=== PATIENT | male | born 1935 | race Caucasian/White ===

== ENCOUNTER 2022-10-07 20:31 | Inpatient (IN) | payer MEDICARE ==
[~2022-10-07] VITALS: Ht 170.2 cm; Wt 56.2 kg
--- NOTE | 2022-10-07 20:40 | NUR ---
[id number] FROM HOME C/O FLU LIKE SYM X 1 WEEK, AT HOME COVID TEST + TODAY. PT A/OX3. TOLERATING O2 3LPM VIA N/C AT 95%. CONNECTED PT TO POX AND MONITOR. SAFETY MEASURES IN PLACE.
[2022-10-07] MEDS ORDERED: DEXAMETHASONE SOD PHOSPHATE 10 MG/ML VIAL ONE (21:56)
[2022-10-07] MEDS ORDERED: DEXAMETHASONE SOD PHOSPHATE 10 MG/ML VIAL IV ONE (22:00)
--- NOTE | 2022-10-07 22:15 | NUR ---
IV ESTABLISHED LFA #18G S/L; BLOOD, COVID ANTIGEN, AND INFLUENZA SWAB COLLECTED AND SENT TO LAB
--- NOTE | 2022-10-07 22:16 | NUR ---
CURRICULUM AND INSTRUCTION DIRECTOR AT PT'S BEDSIDE
[2022-10-07 22:23] LABS: BASOPHILS % (AUTO) 0.3 % (0.0-2.0); EOSINOPHILS % (AUTO) 0.1 % (0.0-6.0); HEMATOCRIT 27 % (39-51); HEMOGLOBIN 8.9 g/dL (13.5-17.5); LYMPHOCYTES # (AUTO) 0.3 K/uL (0.8-4.8); LYMPHOCYTES % (AUTO) 4.9 % (20.0-44.0); MEAN CORPUSCULAR HGB CONC 33 g/dl (31.0-36.0); MEAN CORPUSCULAR VOLUME 89 fL (80-96); MONOCYTES # (AUTO) 0.5 K/uL (0.1-1.30); MONOCYTES % (AUTO) 7.9 % (2.0-12.0); NEUTROPHILS # (AUTO) 5.1 K/uL (1.8-8.9); NEUTROPHILS % (AUTO) 86.8 % (43.0-81.0); PLATELET COUNT (AUTO) 298 K/uL (150-450); RED BLOOD CELL COUNT(AUTO) 3.03 MIL/uL (4.5-6.0); WHITE BLOOD COUNT (AUTO) 5.8 K/uL (4.3-11.0)
[2022-10-07 22:38] LABS: CALCIUM, SERUM 7.9 mg/dL (8.5-10.1); CARBON DIOXIDE 28 mmol/L (21-32); CHLORIDE 97 mmol/L (98-107); CREATININE 2.1 mg/dL (0.6-1.3); GLUCOSE 97 mg/dL (74-106); POTASSIUM 5.1 mmol/L (3.5-5.1); SODIUM SERUM 130 mmol/L (136-145); UREA NITROGEN, BLOOD 62 mg/dL (7-18)
[2022-10-07 22:51] LABS: ALANINE AMINOTRANSFERASE 14 U/L (12-78); ALKALINE PHOSPHATASE 85 U/L (46-116); ASPARTATE AMINOTRANSFERASE 25 U/L (15-37); BILIRUBIN,DIRECT 0.1 mg/dL (0.0-0.2); BILIRUBIN,TOTAL 0.3 mg/dL (0.2-1.0); TOTAL PROTEIN, SERUM 6.9 g/dL (6.4-8.2)
[2022-10-07] MEDS ORDERED: AZITHROMYCIN 500 MG VIAL ONE (23:26)
[2022-10-07] MEDS ORDERED: CEFTRIAXONE 1GM BAG (ER ONLY) 50 ML IV ONE (23:26)
[2022-10-07] MEDS ORDERED: AZITHROMYCIN 500 MG in IV D5W 250 ML IV ONE (23:30)
[2022-10-07] MEDS ORDERED: CEFTRIAXONE 1GM BAG (ER ONLY) 1 GM/50 ML PIGGYBACK IV ONE (23:30)
--- NOTE | 2022-10-07 23:44 | NUR ---
COVID PCR SWAB COLLECTED AND SENT TO LAB
[2022-10-08] MEDS ORDERED: ZOLPIDEM TARTRATE 5 MG TABLET PO PRN (01:00)
[2022-10-08] MEDS ORDERED: ONDANSETRON HCL/PF 4 MG/2 ML VIAL IVP PRN (01:00)
[2022-10-08] MEDS ORDERED: MAG HYDROX/AL HYDROX/SIMETH 30 ML UDC PO PRN (01:00)
[2022-10-08] MEDS ORDERED: AZITHROMYCIN 500 MG in IV D5W 250 ML IV SCH (01:00)
[2022-10-08] MEDS ORDERED: MAGNESIUM HYDROXIDE 30 ML UDC PO PRN (01:00)
[2022-10-08] MEDS ORDERED: Z GUARD REMEDY 4 OZ OINT TP PRN (01:00)
[2022-10-08] MEDS ORDERED: ACETAMINOPHEN 325 MG TABLET PO PRN (01:00)
--- NOTE | 2022-10-08 01:53 | NUR ---
REPORT GIVEN TO KHRIS MARINELLI RN FOR GRICELDA.
--- NOTE | 2022-10-08 02:17 | NUR ---
Maddie renee in EDM - 10/08/22 at 0218 by MICAELA PT TRANFERRED TO [facility] PROTOCOL. VSS. ALL BELONGINGS WITH PT.
--- NOTE | 2022-10-08 02:18 | NUR ---
PT TRANFERRED TO [facility]IA [facility] PROTOCOL. VSS. ALL BELONGINGS WITH PT.
--- NOTE | 2022-10-08 02:36 | NUR ---
RN OPENING NOTE PT RECEIVED FROM ER FROM NURSE HOWARD. PT A&OX1 AND ABLE TO FOLLOW COMMANDS, RESPIRATIONS EVEN AND UNLABORED ON NC AT 3 LPM. DENIES SOB, CHEST DISCOMFORT AND PAIN AT THIS TIME. L FOREARM 18 G FLUSHED AND PATENT. SKIN IS WARM AND DRY. COVID PCR PENDING. SAFETY PRECAUTIONS IN PLACE. BED LOCKED AND AT LOWEST POSITION WITH 2 RAILS UP. CALL LIGHT WITHIN REACH.
[2022-10-08] MEDS: HEPARIN SODIUM, PORCINE 5000 UNITS/1 ML VIAL SQ SCH ×3 (03:15→21:24)
[2022-10-08 04:00] VITALS: BP 114/44
[2022-10-08] MEDS: IV NS 0.9% 1,000 ML IV PRN ×2 (06:41→19:54)
--- NOTE | 2022-10-08 07:16 | NUR ---
RN CLOSING NOTE PT FOUND AWAKE SITTING UP IN BED. SKIN IS WARM, DRY, AND INTACT. VS STABLE. PT ON 2 LPM NC AND TOLERATING WELL. DENIES SOB AND STATES THAT HE FEELS FINE. L FOREARM 18G RUNNING 0.9% NS AT 75 ML/HR. SAFETY PRECAUTIONS IN PLACE. BED LOCKED AND AT LOWEST LEVEL. 2 SIDE RAILS UP, CALL LIGHT WITHIN REACH, AND BED ALARM ON.
--- NOTE | 2022-10-08 07:24 | NUR ---
rn opening note received pt in bed.pt is alert and oriented x1. no complaints of pain or discomfort noted at this time.pt is on tele monitot sinus ally at 59.pt has left iv 18 gauge. pt on isolation due to pcr pending. all safety measures in place. call light within reach. bed locked at lowest position.side rails up x2.
[2022-10-08 08:00] VITALS: BP 99/50
[2022-10-08] MEDS: DEXAMETHASONE SOD PHOSPHATE 10 MG/ML VIAL IV SCH (08:49)
[2022-10-08] MEDS ORDERED: DEXAMETHASONE SOD PHOSPHATE 6 MG in IV D5W 50 ML IV SCH (09:00)
[2022-10-08] MEDS ORDERED: ZINC50TA65 PO (10:05)
[2022-10-08] MEDS ORDERED: ASPI-1169 PO (10:05)
[2022-10-08] MEDS ORDERED: HYDR-4303 PO (10:05)
[2022-10-08 12:00] VITALS: BP 106/33
[2022-10-08] MEDS ORDERED: FUROSEMIDE 20 MG/2 ML VIAL IV ONE (15:00)
[2022-10-08 16:00] VITALS: BP 113/50
--- NOTE | 2022-10-08 19:09 | NUR ---
RN CLOSING NOTE PT ALERT AND ORIENTED X2-3. PT ABLE TO MAKE NEEDS KNOWN. PT IS ON TELE MONITOR SINUS RHYTM 66. PT ON 2 LPM NASAL CANNULA TOLERATING WELL AT ABOVE 94%. NO SIGNS OF PAIN OR DISCOMFORT NOTED AT THIS TIME. PT HAS L FOREARM 18 GUAGE. IV PATENT, INTACT AND FLUSHING WELL. ALL SAFETY MEASURES IN PLACE. CALL LIGHT WITHIN REACH. BED LOCKED IN LOWEST POSITION. BED ALARM ON. ENDORSED TO CURER FOAM RUBBER RN FOR CONTUITY OF CARE
--- NOTE | 2022-10-08 19:30 | NUR ---
RN OPENING NOTE PT A&OX1. SPEECH IS CLEAR AND RESPIRATIONS EVEN AND UNLABORED ON NC AT 2 LPM. SKIN IS WARM AND DRY. NSR ON MUSICAL THERAPIST. NO ACUTE SIGNS OF DISTRESS. DENIES PAIN AND OTHER NEEDS AT THIS TIME. NS RUNNING AT 75 ML/HR VIA L FOREARM 18G IV. SAFETY PRECAUTIONS IN PLACE. BED LOCKED AND AT LOWEST LEVEL. X2 RAILS UP AND CALL LIGHT WITHIN REACH. BED ALARM ON.
[2022-10-08 20:00] VITALS: BP_SYST 107; BP_SYST 122; BP_DIAS 39; BP_DIAS 63
[2022-10-08] MEDS: AZITHROMYCIN 500 MG in IV D5W 250 ML IV SCH (21:20)
[2022-10-08] MEDS: CEFTRIAXONE 1 G in IV D5W 50 ML IV SCH (22:22)
[2022-10-09] VITALS: BP 99/47
[2022-10-09 04:00] VITALS: BP 116/52
--- NOTE | 2022-10-09 06:35 | NUR ---
RN CLOSING NOTE PT SLEEPING BUT EASILY AROUSABLE. SKIN IS WARM AND DRY. RESPIRATIONS EVEN AND UNABLORED ON NC 2 LPM. NSR ON MONITOR AND VS STABLE. L FOREARM IV 18G RUNNING NS AT 75 ML/HR. NO SIGNIFICANT CHANGES DURING SHIFT. NO SIGNS OF DISTRESS. BED LOCKED AND AT LOWEST LEVEL WITH 2 RAILS UP. CALL LIGHT WITHIN REACH.
[2022-10-09 06:53] LABS: CHOLESTEROL 146 mg/dL (<200); HDL CHOLESTEROL 32 mg/dL (40-60); LDL 95 mg/dL (0-99); TRIGLYCERIDES 142 mg/dL (30-150)
[2022-10-09 06:59] LABS: BASOPHILS % (AUTO) 0.2 % (0.0-2.0); HEMATOCRIT 23 % (39-51); HEMOGLOBIN 7.7 g/dL (13.5-17.5); LYMPHOCYTES # (AUTO) 0.5 K/uL (0.8-4.8); LYMPHOCYTES % (AUTO) 7.7 % (20.0-44.0); MEAN CORPUSCULAR HGB CONC 33 g/dl (31.0-36.0); MEAN CORPUSCULAR VOLUME 89 fL (80-96); MONOCYTES # (AUTO) 0.3 K/uL (0.1-1.30); MONOCYTES % (AUTO) 3.8 % (2.0-12.0); NEUTROPHILS # (AUTO) 5.8 K/uL (1.8-8.9); NEUTROPHILS % (AUTO) 88.3 % (43.0-81.0); PLATELET COUNT (AUTO) 282 K/uL (150-450); RED BLOOD CELL COUNT(AUTO) 2.62 MIL/uL (4.5-6.0); WHITE BLOOD COUNT (AUTO) 6.5 K/uL (4.3-11.0)
[2022-10-09 07:09] LABS: CALCIUM, SERUM 8.4 mg/dL (8.5-10.1); CARBON DIOXIDE 28 mmol/L (21-32); CHLORIDE 102 mmol/L (98-107); CREATININE 1.7 mg/dL (0.6-1.3); GLUCOSE 116 mg/dL (74-106); MAGNESIUM 2.7 mg/dL (1.8-2.4); PHOSPHORUS 5.1 mg/dL (2.5-4.9); POTASSIUM 5.2 mmol/L (3.5-5.1); SODIUM SERUM 137 mmol/L (136-145); UREA NITROGEN, BLOOD 68 mg/dL (7-18)
--- NOTE | 2022-10-09 07:25 | NUR ---
rn opening note received pt in bed.pt is alert and oriented x1. no complaints of pain or discomfort noted at this time.pt is on tele monitor sinus rhythm at 64.pt has left iv 18 gauge. iv intact, patent and flushing well. pt on isolation precautions due to pcr pending. all safety measures in place. call light within reach. bed locked at lowest position.side rails up x2. bed alarm on
[2022-10-09 08:00] VITALS: BP 118/65
[2022-10-09] MEDS: DEXAMETHASONE SOD PHOSPHATE 10 MG/ML VIAL IV SCH (08:55)
[2022-10-09] MEDS: HEPARIN SODIUM, PORCINE 5000 UNITS/1 ML VIAL SQ SCH ×2 (08:56→21:40)
[2022-10-09 12:00] VITALS: BP 124/63
[2022-10-09] MEDS: IV NS 0.9% 1,000 ML IV PRN (12:36)
[2022-10-09 16:00] VITALS: BP 136/63
--- NOTE | 2022-10-09 19:32 | NUR ---
RN CLOSING NOTE PT ALERT AND ORIENTED X2-3. PT ABLE TO MAKE NEEDS KNOWN. PT IS ON TELE MONITOR SINUS RHYTM 68.PT ON 2 LPM NASAL CANNULA TOLERATING WELL AT ABOVE 98%. NO SIGNS OF PAIN OR DISCOMFORT NOTED AT THIS TIME. PT HAS L FOREARM 18 GUAGE. IV PATENT, INTACT AND FLUSHING WELL. ALL SAFETY MEASURES IN PLACE. CALL LIGHT WITHIN REACH. BED LOCKED IN LOWEST POSITION. BED ALARM ON. ENDORSED TO DIRECT MAIL COORDINATOR RN FOR CONTUITY OF CARE
--- NOTE | 2022-10-09 19:45 | NUR ---
RN OPENING NOTE PATIENT ASLEEP IN BED. A/OX2. NO S/S OF DISTRESS, BREATHING WITHOUT DIFFICULTY ON 2L NC. LFA #18 SL INTACT AND PATENT. TELE READS SR 66. SAFETY MEASURES IN PLACE: BED LOCKED IN PLACE AND AT LOWEST POSITION, RAILS UP X2, CALL ENGLISH WITHIN REACH, WILL CONTINUE TO MONITOR PATIENT.
[2022-10-09 20:00] VITALS: BP 133/46
[2022-10-09] MEDS: AZITHROMYCIN 500 MG in IV D5W 250 ML IV SCH (21:29)
[2022-10-09] MEDS: CEFTRIAXONE 1 G in IV D5W 50 ML IV SCH (22:32)
[2022-10-10] VITALS: BP 122/38
[2022-10-10 04:53] VITALS: BP 115/64
[2022-10-10] MEDS: IV NS 0.9% 1,000 ML IV PRN ×2 (05:58→17:05)
[2022-10-10 05:59] LABS: CALCIUM, SERUM 7.7 mg/dL (8.5-10.1); CREATININE 1.3 mg/dL (0.6-1.3); MAGNESIUM 2.5 mg/dL (1.8-2.4); PHOSPHORUS 3.3 mg/dL (2.5-4.9); POTASSIUM 4.7 mmol/L (3.5-5.1)
[2022-10-10 06:06] LABS: HEMATOCRIT 22 % (39-51); HEMOGLOBIN 7.2 g/dL (13.5-17.5); LYMPHOCYTES # (AUTO) 0.4 K/uL (0.8-4.8); LYMPHOCYTES % (AUTO) 6.9 % (20.0-44.0); MEAN CORPUSCULAR HGB CONC 33 g/dl (31.0-36.0); MEAN CORPUSCULAR VOLUME 89 fL (80-96); MONOCYTES # (AUTO) 0.3 K/uL (0.1-1.30); MONOCYTES % (AUTO) 5.9 % (2.0-12.0); NEUTROPHILS # (AUTO) 4.4 K/uL (1.8-8.9); NEUTROPHILS % (AUTO) 87.2 % (43.0-81.0); PLATELET COUNT (AUTO) 295 K/uL (150-450); RED BLOOD CELL COUNT(AUTO) 2.46 MIL/uL (4.5-6.0); WHITE BLOOD COUNT (AUTO) 5.1 K/uL (4.3-11.0)
--- NOTE | 2022-10-10 06:48 | NUR ---
RN CLOSING NOTE PATIENT AWAKE IN BED. A/OX1 (NAME). NO S/S/ OF DISTRESS, BREATHING WITHOUT DIFFICULTY ON 2L NC. LFA #18 INTACT AND PATENT W/ NS 75ML/HR. TELE READS SR 68. SAFETY MEASURES IN PLACE: BED LOCKED AND AT LOWEST POSITION, RAILS UP X2, CALL ENGLISH WITHIN REACH. WILL ENDORSE TO NEXT SHIFT FOR GRICELDA.
--- NOTE | 2022-10-10 07:56 | NUR ---
RN OPENING NOTE RECEIVED PATIENT IN BED, AO X 2. ABLE TO RESPONDS ALL STIMULI. RESPIRATORY EVEN AND UNLABORED WITH OXYGEN AT 2Ls VIA NC. IN NO ACUTE DISTRESS OBSERVED. SKIN IS WARM TO TOUCH, KEEP CLEAN/DRY. KEPT ELEVATED HOB FOR ASPIRATION PRECAUTION/ENSURE AIRWAY, AND LOWEST BED POSITIONED. BED ALARM IS ON AT ALL THE TIME FOR SAFETY. CALL LIGHT WITHIN REACH, WILL CONTINUE TO MONITOR
[2022-10-10 08:00] VITALS: BP 105/69
[2022-10-10] MEDS: DEXAMETHASONE SOD PHOSPHATE 10 MG/ML VIAL IV SCH (08:42)
[2022-10-10] MEDS: HEPARIN SODIUM, PORCINE 5000 UNITS/1 ML VIAL SQ SCH ×3 (08:43→21:27)
[2022-10-10 12:00] VITALS: BP 132/61
[2022-10-10 16:00] VITALS: BP 132/61
--- NOTE | 2022-10-10 17:39 | NUR ---
RN CLOSING NOTE PATIENT RESTING IN BED. IN NO ACUTE DISTRESS OBSERVED. RESPIRATORY EVEN AND UNLABORED ON OXYGEN AT 2Ls VIA NC. NO SOB OR DIFFICULTY BREATHING OBSERVED. SKIN IS WARM TO TOUCH KEEP CLEAN/DRY. PROVIDED SKI CARE. KEPT ELEVATED HOB FOR ENSURE AIRWAY/ASPIRATION PRECAUTION, AND LOWEST BED POSITION. BED ALARM IS ON AT ALL THE TIME FOR SAFETY. CALL LIGHT WITHIN REACH, WILL ENDORSE MANAGER LEGAL.
--- NOTE | 2022-10-10 18:44 | NUR ---
PATIENT NOTICED DIFFICULT TO SWALLOWING FOOD WITH COUGHING ACCORDING MD FABIO INFORMED AND PLACED ORDER SWALLOW EVALUATION.
--- NOTE | 2022-10-10 19:30 | NUR ---
RN OPENING NOTE PT A&OX2. SKIN IS WARM AND DRY. SPEECH CLEAR. RESPIRATIONS EVEN AND UNLABORED ON NC AT 2 LPM WITH O2 SAT OF 96%. L FOREARM 18 G INTACT AND RUNNING NS AT 75 ML/HR. NO ACUTE SIGNS OF DISTRESS. DENIES PAIN OR OTHER NEEDS AT THIS TIME. HOB ELEVATED. BED LOCKED AND AT LOWEST LEVEL WITH 2 RAILS UP. CALL IGHT WITHIN REACH.
[2022-10-10 20:00] VITALS: BP 118/82
[2022-10-10] MEDS: AZITHROMYCIN 250 MG TABLET PO SCH (21:22)
--- NOTE | 2022-10-10 21:47 | NUR ---
RN NOTE HEPARIN HELD DUE TO LOW H&H. HGB 7.2. HCT 22.
[2022-10-10] MEDS: CEFTRIAXONE 1 G in IV D5W 50 ML IV SCH (22:11)
[2022-10-11] VITALS (11 sets, daily range): BP systolic 117–152; BP diastolic 38–88
[2022-10-11 06:29] LABS: HEMATOCRIT 21 % (39-51); LYMPHOCYTES # (AUTO) 0.3 K/uL (0.8-4.8); LYMPHOCYTES % (AUTO) 7.9 % (20.0-44.0); MEAN CORPUSCULAR HGB CONC 33 g/dl (31.0-36.0); MEAN CORPUSCULAR VOLUME 90 fL (80-96); MONOCYTES # (AUTO) 0.4 K/uL (0.1-1.30); MONOCYTES % (AUTO) 9.5 % (2.0-12.0); NEUTROPHILS # (AUTO) 3.2 K/uL (1.8-8.9); NEUTROPHILS % (AUTO) 82.6 % (43.0-81.0); PLATELET COUNT (AUTO) 349 K/uL (150-450); RED BLOOD CELL COUNT(AUTO) 2.39 MIL/uL (4.5-6.0); WHITE BLOOD COUNT (AUTO) 3.9 K/uL (4.3-11.0)
--- NOTE | 2022-10-11 06:40 | NUR ---
RN CLOSING NOTE PT A&OX2. SKIN IS WARM AND DRY. SPEECH CLEAR. RESPIRATIONS EVEN AND UNLABORED ON NC AT 2 LPM. L FOREARM 18 G INTACT AND RUNNING NS AT 75 ML/HR. NO ACUTE SIGNS OF DISTRESS. LAB RECENTL CALLED TO INFORM THAT PT'S COVID PCR IS POSITIVE. PRINTING MANAGER PHYSICIAL NOTIFIED OF LABE STATUS. DENIES PAIN OR OTHER NEEDS AT THIS TIME. HOB ELEVATED. BED LOCKED AND AT LOWEST LEVEL WITH 2 RAILS UP. CALL LIGHT WITHIN REACH. PER CAREGIVER, PT EATS PUREED FOODS AT HOME. WILL ENDORSE THIS TO AM NURSE.
[2022-10-11 07:05] LABS: CALCIUM, SERUM 7.9 mg/dL (8.5-10.1); CREATININE 1.1 mg/dL (0.6-1.3); MAGNESIUM 2.5 mg/dL (1.8-2.4); PHOSPHORUS 2.4 mg/dL (2.5-4.9); POTASSIUM 3.9 mmol/L (3.5-5.1)
--- NOTE | 2022-10-11 07:28 | NUR ---
RN NOTE CRITICAL LAB REPORTED BY LAB HGB OF 7.0. NOTIFIED CHARGE NURSE. AWAITING MD ORDERS
[2022-10-11] MEDS: IV NS 0.9% 1,000 ML IV PRN (08:07)
--- NOTE | 2022-10-11 09:40 | NUR ---
RN NOTE MD ORDER FOR 1 UNIT RBC.
[2022-10-11] MEDS: DEXAMETHASONE SOD PHOSPHATE 10 MG/ML VIAL IV SCH (10:02)
[2022-10-11] MEDS ORDERED: NEUTRA PHOS 1 POWD.PACKET PO ONE (13:00)
--- NOTE | 2022-10-11 18:53 | NUR ---
RN CLOSING NOTE COMPLETED 1 UNIT OF RBC, NO REACTION NOTED. PT A&OX2. SKIN IS WARM AND DRY. RESPIRATIONS EVEN AND UNLABORED ON NC AT 2 LPM. L FOREARM 18 G INTACT AND RUNNING NS AT 75 ML/HR. NO ACUTE SIGNS OF DISTRESS. DENIES PAIN OR OTHER NEEDS AT THIS TIME. PATIENT ON PUREE DIET, HOB ELEVATED. BED LOCKED AND AT LOWEST LEVEL WITH 2 RAILS UP. CALL LIGHT WITHIN REACH. WILL ENDORSE CONTINUITY OF CARE TO THERAPEUTIC RECREATION ASSISTANT NURSE
[2022-10-11] MEDS: HEPARIN SODIUM, PORCINE 5000 UNITS/1 ML VIAL SQ SCH (21:00)
[2022-10-11] MEDS: CEFTRIAXONE 1 G in IV D5W 50 ML IV SCH (21:59)
[2022-10-11] MEDS: AZITHROMYCIN 250 MG TABLET PO SCH (21:59)
--- NOTE | 2022-10-11 23:00 | NUR ---
CLYDE HUDSON INFORMED PATIENT HEPARIN HELD, HGB 7.0 IN AM AND WITH NO REPEAT LAB. PATIENT HAD 1 UNIT RBC IN AM. ORDERS TO HOLD AND FOR REPEAT CBC IN AM.
[2022-10-12] VITALS: BP 136/85
[2022-10-12 04:00] VITALS: BP 131/75
[2022-10-12] MEDS: IV NS 0.9% 1,000 ML IV PRN (06:17)
--- NOTE | 2022-10-12 06:50 | NUR ---
RN CLOSING NOTE: ALERT TIMES TO NAME, CONFUSED AND DISORIENTED, REORIENTED NEEDED. ON 02 3 LITERS PER MINUTE NC SATING AT 94 %. SINUS RHYTHM 86 WITH PVC'S ON TELE MONITOR. IVF OF NS AT 75 ML/HR VIA LEFT FOREARM G 18. IV SITE PATENT WITH NO S/S OF COMPLICATIONS. ASPIRATION PRECAUTIONS MAINTAINED. KEPT CLEAN AND DRY. TURNED AND REPOSITIONED. HOB ELEVATED SEMI-CHAMPAGNE'S POSITION, BILATERAL HALF SIDE RAILS UP X2. BED IN LOW POSITION, LOCKED, BED EXIT ALARM ON, CALL LIGHT IN REACH.
[2022-10-12 07:10] LABS: BASOPHILS % (AUTO) 0.1 % (0.0-2.0); HEMATOCRIT 28 % (39-51); HEMOGLOBIN 9.3 g/dL (13.5-17.5); LYMPHOCYTES # (AUTO) 0.6 K/uL (0.8-4.8); LYMPHOCYTES % (AUTO) 12.7 % (20.0-44.0); MEAN CORPUSCULAR HGB CONC 33 g/dl (31.0-36.0); MEAN CORPUSCULAR VOLUME 88 fL (80-96); MONOCYTES # (AUTO) 0.6 K/uL (0.1-1.30); NEUTROPHILS # (AUTO) 3.5 K/uL (1.8-8.9); NEUTROPHILS % (AUTO) 75.2 % (43.0-81.0); PLATELET COUNT (AUTO) 407 K/uL (150-450); RED BLOOD CELL COUNT(AUTO) 3.13 MIL/uL (4.5-6.0); WHITE BLOOD COUNT (AUTO) 4.6 K/uL (4.3-11.0)
[2022-10-12 07:30] LABS: CALCIUM, SERUM 8.2 mg/dL (8.5-10.1); CREATININE 1.2 mg/dL (0.6-1.3); MAGNESIUM 2.1 mg/dL (1.8-2.4); PHOSPHORUS 2.5 mg/dL (2.5-4.9); POTASSIUM 3.9 mmol/L (3.5-5.1)
--- NOTE | 2022-10-12 07:35 | NUR ---
TRIMMING OPERATOR OPENING NOTES RECEIVED PT ASLEEP IN BED. NO SIGNS OF PAIN OR DISCOMFORT AT THIS TIME. RESPIRATIONS ARE EQUAL AND UNLABORED WITH NO SOB. PT IS ON NC 2L AND TOLERATING IT WELL WITH O2 SATURATION AT 97%. PT IS PO AND RECEIVES MEDS ORALLY. IV ACCESS ON LFA 18G PATENT AND INTACT. PT IS PO AND RECIEVS MEDS ORALLY. HOB ELEVATED TO PTS COMFORT. SIDERAILS UP AT ALL TIMES. CALL LIGHT WITHIN REACH. WILL CONTINUE CURRENT PLAN OF CARE.
[2022-10-12 08:00] VITALS: BP_SYST 145; BP_SYST 156; BP_DIAS 78; BP_DIAS 96
[2022-10-12] MEDS: DEXAMETHASONE SOD PHOSPHATE 10 MG/ML VIAL IV SCH (08:16)
[2022-10-12] MEDS: HEPARIN SODIUM, PORCINE 5000 UNITS/1 ML VIAL SQ SCH ×2 (08:23→20:15)
--- NOTE | 2022-10-12 09:34 | NUR ---
SALES OFFICE ADMINISTRATOR NOTE ST AT BEDSIDE SWALLOW EVAL DONE STILL NEED PURE DIET AND ON ASPIRATION PRECAUTION AND HONEY THICKEN LIQUID, WILL F\U
--- NOTE | 2022-10-12 11:49 | NUR ---
VET TECH NOTE UNABLE TO DO PT, PATIENT VERY UNCOOPERATIVE
[2022-10-12 12:00] VITALS: BP 114/46
--- NOTE | 2022-10-12 12:33 | NUR ---
DIET KITCHEN COOK NOTES MADE DR GALINDO AWARE OF PT BP 145/78. STATED THAT HE WILL PUT NEW PRN ORDERS FOR HYPERTENSION.
--- NOTE | 2022-10-12 15:00 | NUR ---
MAINTENANCE TECHNICIAN NOTE ALL NEEDS ATTENDED TURB REPOSITION , ON IVF ORDERED, NOT IN DISTRESS
[2022-10-12 16:00] VITALS: BP 138/79
--- NOTE | 2022-10-12 17:54 | NUR ---
ESTIMATING MANAGER NOTES PROCEDURAL NURSE TRIED TO ASSIST PT TO EAT DINNER BUT PT STRONGLY REFUSED.
--- NOTE | 2022-10-12 18:16 | NUR ---
FIRE INFORMATION OFFICER CLOSING NOTES PT IS AWAKE IN BED AOX2. NO COMPLAINTS OF PAIN OR DISCOMFORT AT THIS TIME. ON NASAL CAANNULA 2 L AND TOLERATING IT WELL WITH 02 SATURATION AT 95%. IV ACCESS ON LFA 18 GAUGE PATENT AND INTACT. HOB ELEVATED TO PTS COMFORT. SIDERAILS UP AT ALL TIMES. CALL LIGHT WITHIN REACH. WILL ENDORSE TO ONCOMING NURSE
--- NOTE | 2022-10-12 19:30 | NUR ---
RN opening notes Received Pt from morning nurse. Pt is alert and orientedX1-2 with episode of confusion. On room air. On 2 L NC. No SOB. No S/S of distress noted. Tele monitor showed SR. Iv site LFA# 18 is clean, intact and running NS@ 75 ml/hr. Safety precautions is maintained. Bed at low position, brakes locked, side rails upX3, hob elevated, bed alarm is on and call light is within reach. Will continue to monitor.
[2022-10-12 20:00] VITALS: BP 142/91
[2022-10-12] MEDS: CEFTRIAXONE 1 G in IV D5W 50 ML IV SCH (21:00)
[2022-10-13] VITALS: BP 133/68
[2022-10-13 04:00] VITALS: BP 145/56
[2022-10-13] MEDS: IV NS 0.9% 1,000 ML IV PRN (05:08)
--- NOTE | 2022-10-13 06:49 | NUR ---
RN closing notes Pt is resting in bed comfortably. Pt is alert and orientedX1-2 with episode of confusion. On 2 L NC. No SOB. No S/S of distress noted. Vs is stable. afebrile. Tele monitor showed SR. Iv site LFA# 18 is clean, intact and running NS@ 75 ml/hr. Routine meds were given as ordered. Kept Pt clean, dry and comfortable. Safety precautions is maintained. Bed at low position, brakes locked, side rails upX3, hob elevated, bed alarm is on and call light is within reach. Will endorse to am nurse for GRICELDA.
[2022-10-13 08:00] VITALS: BP 145/56
--- NOTE | 2022-10-13 08:00 | NUR ---
OPENING RN NOTE PT IN BED, ALERT TIMES TO NAME, CONFUSED AND DISORIENTED, REORIENTED NEEDED. ON 3 LITERS PER MINUTE NC SATING AT 94 %. IVF OF NS AT 75 ML/HR VIA LEFT FOREARM G 18. IV SITE PATENT WITH NO S/S OF COMPLICATIONS. ASPIRATION PRECAUTIONS MAINTAINED. KEPT CLEAN AND DRY. TURNED AND REPOSITIONED. HOB ELEVATED SEMI-CHAMPAGNE'S POSITION, BILATERAL HALF SIDE RAILS UP X2. BED IN LOW POSITION, LOCKED, BED EXIT ALARM ON, CALL LIGHT IN REACH.
[2022-10-13] MEDS: DEXAMETHASONE SOD PHOSPHATE 10 MG/ML VIAL IV SCH (09:19)
[2022-10-13] MEDS: HEPARIN SODIUM, PORCINE 5000 UNITS/1 ML VIAL SQ SCH (09:19)
[2022-10-13] MEDS ORDERED: DEXA4TAB PO (10:20)
[2022-10-13] MEDS ORDERED: DOXY100T2 PO (10:20)
--- NOTE | 2022-10-13 10:21 | NUR ---
REPORT GIVEN TO LORENZA FOR CONTINUING OF CARE.
[2022-10-13 12:00] VITALS: BP 139/64
--- NOTE | 2022-10-13 12:29 | NUR ---
report given to Antwan ROBERTS pt. going to [id number].
--- NOTE | 2022-10-13 12:40 | NUR ---
basting machine operator Note Patient AOx2, not able to express his concerns. Per physician pt meets discharge criteria. Report given to Jesus at facility [facility] ph. [phone] All safety precautions taken. [facility] transport at bed iside patient with no signs of distress or discomfort. VSS, no signs of respiratory distress, pt on room air O2 at 97%. [facility] transport unit# [id number], Keisha
== END 2022-10-13 18:09 | DRG 177 ==
LOC: ER 20:39 → TELE1 10-08 01:45
PROVIDERS: ADMIT Nurse Practitioner Acute Care; ATTEND Internal Medicine
PROC: 30233N1 Transfusion of Nonautologous Red Blood Cells into Peripheral Vein, Percutaneous Approach (ICD-10-PCS; principal; 2022-10-11)
DX: U07.1 COVID-19 (principal); G92.8 Other toxic encephalopathy; J12.82 Pneumonia due to coronavirus disease 2019; J96.01 Acute respiratory failure with hypoxia; I50.33 Acute on chronic diastolic (congestive) heart failure; N17.0 Acute kidney failure with tubular necrosis; J15.9 Unspecified bacterial pneumonia; J44.0 Chronic obstructive pulmonary disease with (acute) lower respiratory infection; E87.1 Hypo-osmolality and hyponatremia; E86.0 Dehydration; E87.5 Hyperkalemia; E88.09 Other disorders of plasma-protein metabolism, not elsewhere classified; F03.90 Unspecified dementia, unspecified severity, without behavioral disturbance, psychotic disturbance, mood disturbance, and anxiety; I11.0 Hypertensive heart disease with heart failure; Z87.891 Personal history of nicotine dependence; F09 Unspecified mental disorder due to known physiological condition; D63.8 Anemia in other chronic diseases classified elsewhere
CPT/HCPCS: 36415; 71045-TC; 76770-TC; 80048-TC; 80061-TC; 80076-TC; 83735-TC; 83880; 84100-TC; 84484-TC; 85025-TC; 85378-TC; 85730-TC; 86140-TC; 86850-TC; 87081-TC; 92526; 92611-TC; 97110-TC; 97112-TC; 97530-TC; C9803; G0378; J0456; J0696; J1100; J1644; J1940; J7030; J7050; J7060; P9016; U0003